=== PATIENT | female | born 1955 | race Caucasian/White ===

== ENCOUNTER → 2023-06-21 06:23 | Day surgery (SDC) | payer MEDICARE, OTHER, SELFPAY | LOC: GI 06:23 | PROVIDERS: ATTENDING PHYSICIAN Internal Medicine Gastroenterology; FAMILY PHYSICIAN Family Medicine | DX: Z12.11 Encounter for screening for malignant neoplasm of colon (principal); Z80.0 Family history of malignant neoplasm of digestive organs; K57.30 Diverticulosis of large intestine without perforation or abscess without bleeding; D12.0 Benign neoplasm of cecum | CPT/HCPCS: 45385; 88305 ==